=== PATIENT | male | born 1990 | race African-American/Black ===

== ENCOUNTER 2020-06-09 04:47 | Emergency (ER) | payer OTHER ==
[2020-06-09] MEDS ORDERED: LIDOCAINE 1% INJ-PF (10 MG/ML) 30 ML SDV INJ ONE (05:18)
[2020-06-09] MEDS ORDERED: CEFTRIAXONE INJ 250 MG VIAL IM ONE (05:18)
[2020-06-09] MEDS ORDERED: AZITHROMYCIN 250 MG TABLET PO ONE (05:19)
--- NOTE | 2020-06-09 05:22 | ER Document Report ---
HPI - HPI Time Seen by Provider: 06/09/20 05:11 Pain Level: 4 Context: Patient is a 29-year-old male that comes emergency department for chief complaint of a swollen area in his left groin, irritation around the head of the penis, penile discharge for the past couple of days, and painful urination. He states he was seen by primary care, he states they told him it might be a fungal infection, he states that they gave him an antifungal that he has been trying but his symptoms have been worsening instead of improving. He states that he did have possible STD exposure with his ex-fianc. He denies abdominal pain, fever/chills, nausea/vomiting, or any other complaints. He denies any daily medications or diagnosed medical history. - REPRODUCTIVE Reproductive: DENIES: : Past Medical History - General Information source: Patient - Social History Smoking Status: Current Every Day Smoker Chew tobacco use (# tins/day): No Frequency of alcohol use: Heavy Drug Abuse: None Lives with: Family Family History: Reviewed & Not Pertinent Patient has homicidal ideation: No - Immunizations Immunizations up to date: Yes Hx Diphtheria, Pertussis, Tetanus Vaccination: Yes Vertical Provider Document - CONSTITUTIONAL General Appearance: WD/WN, No Apparent Distress - HEENT HEENT: Atraumatic, Normocephalic - NECK Neck: Normal Inspection - RESPIRATORY Respiratory: Breath Sounds Normal, No Respiratory Distress - CARDIOVASCULAR Cardiovascular: Regular Rate, Regular Rhythm - GI/ABDOMEN Gastrointestinal: Abdomen Soft, Abdomen Non-Tender. negative: Abdomen Tender - REPRODUCTIVE Male Genitalia: negative: Normal Inspection - There is irritation, mild erythema of the glans of the penis and of the foreskin around this. There is small amount of what looks like dried discharge as well. I do not see any vesicles or lesions, there is no canker, there is no swelling of the penis or scrotum, there is no tenderness of the testicles. There is left inguinal adenopathy noted. No concerning findings otherwise - MUSCULOSKELETAL/EXTREMETIES Musculoskeletal/Extremeties: MAEW, FROM, Non-Tender - NEURO Level of Consciousness: Awake, Alert, Appropriate Motor/Sensory: No Motor Deficit, No Sensory Deficit - DERM Integumentary: Warm, Dry, No Rash Course - Re-evaluation Re-evalutation: Patient with irritation, discharge, dysuria, and left inguinal adenopathy. Overall I suspect urethritis. Patient has concerns for possible STD exposure as well. I do not see any other concerning findings. Discussed with patient, patient will be treated with Rocephin, azithromycin, and Flagyl, discussed recommendations, follow-up, return precautions. Patient states appreciation and agreement. - Vital Signs Vital signs: Temp Pulse Resp BP Pulse Ox 99.2 F 06/09/20 04:53 Discharge - Discharge Clinical Impression: Possible exposure to STD, Inguinal lymphadenopathy, Dysuria, Penile discharge Condition: Stable Disposition: HOME, SELF-CARE Additional Instructions: You have been treated for suspected STD exposure. Complete the antibiotics as prescribed. Any partner needs to be treated as well. Avoid sexual intercourse for 7 to 10 days. Follow-up with primary care for additional management. Return if you worsen including developing or spreading redness, abdominal pain, fever, vomiting, or any other concerning symptoms. Prescriptions: Metronidazole [Flagyl 500 mg Tablet] 500 mg PO BID 7 Days #14 tablet Forms: Return to Work
[2020-06-09 05:54] VITALS: BP 137/86
[2020-06-09 07:15] LABS: CHLAM PCR NOT DETECTED (NOT DETECT)
== END 2020-06-09 05:58 | disposition home or self-care (01) ==
LOC: ER 04:47
DX: R59.0 Localized enlarged lymph nodes (principal); R30.0 Dysuria; R36.9 Urethral discharge, unspecified; L53.9 Erythematous condition, unspecified; Z20.2 Contact with and (suspected) exposure to infections with a predominantly sexual mode of transmission; F17.200 Nicotine dependence, unspecified, uncomplicated
CPT/HCPCS: 99284; 96372; 87491; 87591; J3490; J0696